=== PATIENT | male | born 1950 | race Caucasian/White ===

== ENCOUNTER 2020-09-17 15:50 | Inpatient (IN) | payer MEDICARE, BC ==
[2020-09-17 17:19] LABS: #Eosinphils 0.1 thou/uL (0.0-0.7); #Lymphocytes 0.7 thou/uL (1.20-3.40); #Monocytes 0.2 thou/uL (0.11-0.59); #Neutrophils 3.5 thou/uL (1.40-6.50); %Basophils 0.1 % (0.0-1.0); %Eosinophils 1.5 % (0.0-10.0); %Lymphocytes 14.5 % (21.0-51.0); %Monocytes 4.9 % (0.0-10.0); Hemoglobin 14.1 g/dL (14.0-18.0); Mean Corpuscular HGB CONC 34.2 g/dL (32.0-36.0); Mean Corpuscular Hemoglobin 32.8 pg (27.0-31.0); Mean Platelet Volume 7.3 fL (7.4-10.4); Platelet Count 171 thou/uL (130-400); Red Blood Cell (RBC) Count 4.31 mill/uL (4.70-6.10); White Blood Cell (WBC) Count 4.5 thou/uL (4.8-10.8)
[2020-09-17] MEDS ORDERED: cefTRIAXone\\ROCEPHIN 2 GM VIAL ONE (17:22)
[2020-09-17] MEDS ORDERED: Azithromycin 500 MG VIAL ONE (17:22)
[2020-09-17 17:34] LABS: ALT (SGPT) 22 U/L (8-55); AST (SGOT) 18 U/L (5-34); Albumin 3.6 g/dL (3.4-4.8); Alkaline Phosphatase 82 U/L (40-110); Anion Gap 13 mmol/L (10-20); BUN (Urea Nitrogen) 29 mg/dL (8.4-25.7); Bilirubin, Total 0.6 mg/dL (0.2-1.2); Calc. Creatinine Clearance 0 mL/min (70-130); Carbon Dioxide 20 mmol/L (23-31); Chloride 112 mmol/L (98-107); Globulin 2.3 g/dL (2.4-3.5); Glucose 144 mg/dL (80-115); Potassium 4.5 mmol/L (3.5-5.1); Protein, Total 5.9 g/dL (5.8-8.1); Sodium 140 mmol/L (136-145)
[2020-09-17 20:17] LABS: Bacteria/HPF 4+ HPF (None Seen); Bilirubin Negative (Negative); Blood, Urine 1+ (Negative); Clarity Clear (Clear); Glucose, Urine (Dipstick) Normal (Negative); Ketone, Urine Negative (Negative); Leukocyte 500 Leu/uL (Negative); Nitrite 2+ (Negative); Protein, Urine (Dipstick) 20 mg/dL (Neg-Trace); Squamous Epithelial None Seen HPF (0-3); Urobilinogen Normal mg/dL (Less than 2); WBC/HPF 21-50 HPF (0-3); pH, Urine 5.5 (5.0-9.0)
[2020-09-17 20:53] LABS: Lactic Acid 1.7 mmol/L (0.5-2.2)
[2020-09-17] MEDS ORDERED: Ondansetron PF 4 MG/2 ML Vial IVP PRN (22:01)
[2020-09-17] MEDS ORDERED: Dextrose 50% Abboject 50 ML SYRINGE SLOW IVP PRN (22:04)
[2020-09-17] MEDS ORDERED: Dextrose 5% in Water 1,000 ML IV PRN (22:04)
[2020-09-17] MEDS ORDERED: HumaLOG 300 UNITS/3 ML VIAL SC PRN ×2 (22:04)
[2020-09-17] MEDS ORDERED: Sodium Chloride 0.9% 1,000 ML IV SCH (22:15)
[2020-09-17 23:35] VITALS: BMI 29.4
[2020-09-17] MEDS ORDERED: Cefepime 2 GM in Sodium Chloride 0.9% 100 ML IVPB SCH (23:45)
[2020-09-17] MEDS ORDERED: VANCOMYCIN 2 GRAM/400 ML BAG 2 GM in Premix Bag 1 BAG IVPB SCH (23:59)
[2020-09-18 04:39] LABS: Legionella Urinary Ag Negative (Negative); Strep pneumo Urine Ag NEGATIVE (NEGATIVE)
[2020-09-18 05:17] LABS: #Monocytes 0.5 thou/uL (0.11-0.59); #Neutrophils 7.7 thou/uL (1.40-6.50); %Basophils 0.3 % (0.0-1.0); %Eosinophils 0.2 % (0.0-10.0); %Lymphocytes 10.7 % (21.0-51.0); %Monocytes 5.8 % (0.0-10.0); Hemoglobin 11.4 g/dL (14.0-18.0); Mean Corpuscular HGB CONC 33.7 g/dL (32.0-36.0); Mean Corpuscular Hemoglobin 32.5 pg (27.0-31.0); Mean Corpuscular Volume 96.5 fL (78.0-98.0); Mean Platelet Volume 7.4 fL (7.4-10.4); Platelet Count 134 thou/uL (130-400); RBC Distribution Width 12.2 % (11.5-14.5); Red Blood Cell (RBC) Count 3.52 mill/uL (4.70-6.10); White Blood Cell (WBC) Count 9.3 thou/uL (4.8-10.8)
[2020-09-18 05:37] LABS: Anion Gap 9 mmol/L (10-20); BUN (Urea Nitrogen) 25 mg/dL (8.4-25.7); Calc. Creatinine Clearance 53 mL/min (70-130); Calcium 7.9 mg/dL (7.8-10.44); Carbon Dioxide 23 mmol/L (23-31); Chloride 110 mmol/L (98-107); Glucose 116 mg/dL (80-115); Magnesium 1.7 mg/dL (1.6-2.6); Potassium 4.6 mmol/L (3.5-5.1); Sodium 137 mmol/L (136-145)
[2020-09-18] MEDS ORDERED: Sodium Chloride 0.9% 1,000 ML IV SCH (08:00)
[2020-09-18] MEDS ORDERED: Enoxaparin Sodium 30 MG/0.3 ML SYRINGE SC SCH (09:00)
[2020-09-18] MEDS: Gabapentin 400 MG CAP PO SCH ×2 (09:03→20:54)
[2020-09-18] MEDS: Atorvastatin Calcium 10 MG TAB PO SCH (09:04)
[2020-09-18] MEDS: Famotidine 20 MG TAB PO SCH ×2 (09:04→20:54)
[2020-09-18] MEDS: Bupropion 150 MG XL TAB PO SCH (09:04)
[2020-09-18] MEDS: Lactated Ringer's 1,000 ML IV SCH ×3 (09:09→18:36)
[2020-09-18] MEDS: Cefepime 2 GM in Sodium Chloride 0.9% 100 ML IVPB SCH ×2 (11:32→23:59)
[2020-09-18] MEDS ORDERED: Fludrocortisone Acetate 0.1 MG TAB PO SCH (17:00)
[2020-09-19] MEDS ORDERED: Vancomycin 1.5 GRAM/300 ML BAG 1.5 GM in Premix Bag 1 BAG IVPB SCH (01:00)
[2020-09-19] MEDS: Lactated Ringer's 1,000 ML IV SCH ×4 (03:16→20:25)
[2020-09-19] MEDS: Acetaminophen 325 MG TAB PO PRN ×3 (03:34→20:21)
[2020-09-19 05:17] LABS: ALT (SGPT) 14 U/L (8-55); AST (SGOT) 18 U/L (5-34); Albumin 2.7 g/dL (3.4-4.8); Alkaline Phosphatase 61 U/L (40-110); Anion Gap 8 mmol/L (10-20); BUN (Urea Nitrogen) 23 mg/dL (8.4-25.7); Bilirubin, Total 0.4 mg/dL (0.2-1.2); Calc. Creatinine Clearance 56 mL/min (70-130); Calcium 8.7 mg/dL (7.8-10.44); Carbon Dioxide 23 mmol/L (23-31); Chloride 110 mmol/L (98-107); Globulin 2.2 g/dL (2.4-3.5); Glucose 152 mg/dL (80-115); Magnesium 1.7 mg/dL (1.6-2.6); Potassium 3.9 mmol/L (3.5-5.1); Protein, Total 4.9 g/dL (5.8-8.1); Sodium 137 mmol/L (136-145)
[2020-09-19 06:04] LABS: #Eosinphils 0.1 thou/uL (0.0-0.7); #Lymphocytes 0.8 thou/uL (1.20-3.40); #Monocytes 0.5 thou/uL (0.11-0.59); #Neutrophils 7.7 thou/uL (1.40-6.50); %Basophils 0.5 % (0.0-1.0); %Eosinophils 1.5 % (0.0-10.0); %Lymphocytes 8.7 % (21.0-51.0); %Monocytes 5.5 % (0.0-10.0); %Neutrophils 83.8 % (42.0-75.0); Hemoglobin 11.1 g/dL (14.0-18.0); Mean Corpuscular HGB CONC 32.7 g/dL (32.0-36.0); Mean Corpuscular Hemoglobin 31.3 pg (27.0-31.0); Mean Corpuscular Volume 95.6 fL (78.0-98.0); Mean Platelet Volume 7.3 fL (7.4-10.4); Platelet Count 115 thou/uL (130-400); Platelet Morphology Comment Appears Adequate; RBC Distribution Width 12.1 % (11.5-14.5); Red Blood Cell (RBC) Count 3.55 mill/uL (4.70-6.10); White Blood Cell (WBC) Count 9.2 thou/uL (4.8-10.8)
[2020-09-19] MEDS: Gabapentin 400 MG CAP PO SCH ×2 (09:15→20:22)
[2020-09-19] MEDS: Bupropion 150 MG XL TAB PO SCH (09:16)
[2020-09-19] MEDS: Famotidine 20 MG TAB PO SCH ×2 (09:16→20:21)
[2020-09-19] MEDS: Fludrocortisone Acetate 0.1 MG TAB PO SCH (09:16)
[2020-09-19] MEDS: Atorvastatin Calcium 10 MG TAB PO SCH (09:16)
[2020-09-19] MEDS: Cefepime 2 GM in Sodium Chloride 0.9% 100 ML IVPB SCH (13:14)
[2020-09-19] MEDS: Cefdinir 300 MG CAP PO SCH (20:21)
[2020-09-20 04:28] LABS: %Basophils 0.1 % (0.0-1.0); %Eosinophils 1.8 % (0.0-10.0); %Lymphocytes 12.8 % (21.0-51.0); %Monocytes 5.4 % (0.0-10.0); %Neutrophils 79.9 % (42.0-75.0); Mean Corpuscular HGB CONC 34.3 g/dL (32.0-36.0); Mean Corpuscular Hemoglobin 32.6 pg (27.0-31.0); Mean Platelet Volume 7.4 fL (7.4-10.4); Platelet Count 116 thou/uL (130-400); RBC Distribution Width 11.8 % (11.5-14.5); Red Blood Cell (RBC) Count 3.68 mill/uL (4.70-6.10); White Blood Cell (WBC) Count 9.1 thou/uL (4.8-10.8)
[2020-09-20 04:29] LABS: #Eosinphils 0.2 thou/uL (0.0-0.7); #Lymphocytes 1.2 thou/uL (1.20-3.40); #Monocytes 0.5 thou/uL (0.11-0.59); #Neutrophils 7.2 thou/uL (1.40-6.50)
[2020-09-20 04:44] LABS: Anion Gap 10 mmol/L (10-20); BUN (Urea Nitrogen) 15 mg/dL (8.4-25.7); Calc. Creatinine Clearance 59 mL/min (70-130); Calcium 8.7 mg/dL (7.8-10.44); Carbon Dioxide 24 mmol/L (23-31); Chloride 109 mmol/L (98-107); Glucose 129 mg/dL (80-115); Magnesium 1.5 mg/dL (1.6-2.6); Potassium 3.6 mmol/L (3.5-5.1); Sodium 139 mmol/L (136-145)
[2020-09-20] MEDS ORDERED: Vancomycin 1 GM in Premix Bag 1 BAG IVPB SCH (09:00)
[2020-09-20] MEDS: Gabapentin 400 MG CAP PO SCH ×2 (09:21→20:34)
[2020-09-20] MEDS: Cefdinir 300 MG CAP PO SCH (09:21)
[2020-09-20] MEDS: Atorvastatin Calcium 10 MG TAB PO SCH (09:21)
[2020-09-20] MEDS: Bupropion 150 MG XL TAB PO SCH (09:21)
[2020-09-20] MEDS: Famotidine 20 MG TAB PO SCH ×2 (09:21→20:34)
[2020-09-20] MEDS: Fludrocortisone Acetate 0.1 MG TAB PO SCH (09:23)
[2020-09-20] MEDS: Saccharomyces boulardii 250 MG CAP PO SCH (09:27)
[2020-09-20] MEDS: Acetaminophen 325 MG TAB PO PRN ×2 (09:27→20:34)
[2020-09-20] MEDS: Lactated Ringer's 1,000 ML IV SCH ×2 (09:53→18:37)
[2020-09-20] MEDS: Vancomycin 1.5 GRAM/300 ML BAG 1.5 GM in Premix Bag 1 BAG IVPB SCH (12:22)
[2020-09-20] MEDS: Cefepime 2 GM in Sodium Chloride 0.9% 100 ML IVPB SCH (20:33)
[2020-09-21] MEDS: Lactated Ringer's 1,000 ML IV SCH ×3 (05:00→17:51)
[2020-09-21] MEDS: Gabapentin 400 MG CAP PO SCH ×2 (08:24→20:45)
[2020-09-21] MEDS: Cefepime 2 GM in Sodium Chloride 0.9% 100 ML IVPB SCH ×2 (08:24→20:46)
[2020-09-21] MEDS: Bupropion 150 MG XL TAB PO SCH (08:25)
[2020-09-21] MEDS: Fludrocortisone Acetate 0.1 MG TAB PO SCH (08:25)
[2020-09-21] MEDS: Atorvastatin Calcium 10 MG TAB PO SCH (08:25)
[2020-09-21] MEDS: Famotidine 20 MG TAB PO SCH ×2 (08:25→20:45)
[2020-09-21] MEDS: Saccharomyces boulardii 250 MG CAP PO SCH (08:25)
[2020-09-21] MEDS: Vancomycin 1.5 GRAM/300 ML BAG 1.5 GM in Premix Bag 1 BAG IVPB SCH (10:18)
[2020-09-22] MEDS: Lactated Ringer's 1,000 ML IV SCH (04:24)
[2020-09-22] MEDS: Gabapentin 400 MG CAP PO SCH (09:14)
[2020-09-22] MEDS: Bupropion 150 MG XL TAB PO SCH (09:14)
[2020-09-22] MEDS: Atorvastatin Calcium 10 MG TAB PO SCH (09:14)
[2020-09-22] MEDS: Cefepime 2 GM in Sodium Chloride 0.9% 100 ML IVPB SCH (09:14)
[2020-09-22] MEDS: Famotidine 20 MG TAB PO SCH (09:14)
[2020-09-22] MEDS: Saccharomyces boulardii 250 MG CAP PO SCH (09:14)
[2020-09-22] MEDS: Fludrocortisone Acetate 0.1 MG TAB PO SCH (09:15)
[2020-09-22 10:04] LABS: Vancomycin, Trough 11.8 ug/mL
[2020-09-22] MEDS: Vancomycin 1.5 GRAM/300 ML BAG 1.5 GM in Premix Bag 1 BAG IVPB SCH (11:15)
[2020-09-22 11:56] VITALS: BP 138/84; TEMP 98.2
== END 2020-09-22 13:41 | disposition home or self-care (01) | DRG 871 ==
LOC: ERS 15:50 → 2NO 19:30 → T4-A 09-21 13:49
PROVIDERS: ADMIT Internal Medicine; ATTEND Internal Medicine
DX: A41.9 Sepsis, unspecified organism (principal); J96.01 Acute respiratory failure with hypoxia; J18.9 Pneumonia, unspecified organism; G93.41 Metabolic encephalopathy; N18.4 Chronic kidney disease, stage 4 (severe); N39.0 Urinary tract infection, site not specified; E46 Unspecified protein-calorie malnutrition; E78.5 Hyperlipidemia, unspecified; E11.22 Type 2 diabetes mellitus with diabetic chronic kidney disease; I12.9 Hypertensive chronic kidney disease with stage 1 through stage 4 chronic kidney disease, or unspecified chronic kidney disease; F32.9 Major depressive disorder, single episode, unspecified; I95.1 Orthostatic hypotension; E86.0 Dehydration; Z88.2 Allergy status to sulfonamides; Z90.6 Acquired absence of other parts of urinary tract; Z87.891 Personal history of nicotine dependence; Z85.51 Personal history of malignant neoplasm of bladder; Z82.49 Family history of ischemic heart disease and other diseases of the circulatory system; Z93.6 Other artificial openings of urinary tract status; Z89.511 Acquired absence of right leg below knee; Z68.29 Body mass index [BMI] 29.0-29.9, adult
CPT/HCPCS: 36415; 36416; 71045; 71046; 76705; 80048; 80053; 80202; 81003; 81015; 82533; 83605; 83735; 84145; 84484; 85025; 87040; 87086; 87449; 87899; 93005; 93306; 96365; 96367; J0456; J0692; J0696; J1815; J3370; J3475; J3490